=== PATIENT | female | born 1930 | race Caucasian/White ===

== ENCOUNTER 2016-11-02 06:50 | Inpatient (IN) | payer OTHER ==
[2016-11-02] VITALS (16 sets, daily range): BP systolic 108–177; BP diastolic 43–123
[~2016-11-02] VITALS: Ht 154.9 cm; Wt 88.0 kg
--- NOTE | 2016-11-02 06:56 | NUR ---
[facility] TO ER BED 1
--- NOTE | 2016-11-02 06:59 | NUR ---
RECEIVED PT THROUGH ER. PT TRACH SIZE IS PORTEX 8. PT PLACED ON VENT WITH SETTINGS RECEIVED FROM [facility]. SETTINGS AC 12, VT 500, PEEP 5 AND FIO2 40%. PT SUCTIONED OBTAINED MODERATE AMOUNT OF BLOODY SECRETIONS, AIRWAY IS PATENT. TRACH SECURE. BIPAP IS PLUGGED INTO RED OUTLET WITH ALARMS ON AND FUNCTIONING. AMBU BAG IS PRESENT AT BEDSIDE. WILL CONTINUE TO MONITOR.
[2016-11-02] MEDS ORDERED: diphenhydrAMINE 50 MG/ML VIAL IVP ONE (07:10)
[2016-11-02] MEDS ORDERED: ALBUTEROL SULFATE/IPRATROPIU 3 ML SOL IH PRN (07:10)
[2016-11-02] MEDS ORDERED: FAMOTIDINE 20 MG/2 ML VIAL IVP ONE (07:10)
[2016-11-02] MEDS ORDERED: DEXAMETHASONE 10 MG/ML VIAL IVP ONE (07:10)
--- NOTE | 2016-11-02 07:15 | NUR ---
BIBA C/O SWOLLEN TONGUE FOR 2 DAYS NOW , POSSIBLE ALLERGIC REACTION TO VANCOMYCIN, OR FLAGYL. BREATHING TREATMENT WAS GIVEN EN ROUTE, WITH LEFT CELLULITIS, VENTILATOR DEPENDENT AC 12 TV 500 FIO2 40% PEEP +5 SPO2 100%
[2016-11-02] MEDS ORDERED: ARTIFICIAL TEA1 EACH OP (07:29)
[2016-11-02] MEDS ORDERED: BUDESONIDE0.25 MG/2 NEB (07:29)
[2016-11-02] MEDS ORDERED: TYLENOL325 M2 GT (07:29)
[2016-11-02] MEDS ORDERED: BENADRYL25 M3 GT (07:29)
[2016-11-02] MEDS ORDERED: ASPIR 8181 M1 GT (07:29)
[2016-11-02] MEDS ORDERED: CALCIUM 600 MG-1 TAB GT (07:36)
[2016-11-02] MEDS ORDERED: GABAPENTIN250 MG/5 M GT (07:46)
[2016-11-02] MEDS ORDERED: FLUCONAZOLE 50 MG/5 ML GT (07:46)
[2016-11-02] MEDS ORDERED: FERROUS SULF GT (07:46)
[2016-11-02] MEDS ORDERED: FUROSEMIDE20 MG GT (07:46)
[2016-11-02] MEDS ORDERED: COLACE100 MG GT (07:46)
[2016-11-02] MEDS ORDERED: [UNRECOGNIZED DRUG - OTHER] PO (07:46)
[2016-11-02] MEDS ORDERED: FERROUS SULFATE65 MG GT (07:46)
[2016-11-02] MEDS ORDERED: GOOD NEIGHBOR P10 M1 RC (07:46)
[2016-11-02] MEDS ORDERED: NACL 0.9% 2,000 ML IV ONE (07:50)
[2016-11-02] MEDS ORDERED: AZITHROMYCIN 500 MG in DEXTROSE 5% 250 ML IV ONE (08:05)
[2016-11-02] MEDS ORDERED: AZTREONAM 2,000 MG in DEXTROSE 5% 100 ML IV ONE (08:05)
[2016-11-02] MEDS ORDERED: NACL 0.9% 1,000 ML IV ONE (08:05)
[2016-11-02] MEDS ORDERED: LOPRESSOR25 MG GT (08:06)
[2016-11-02] MEDS ORDERED: PROBIOTIC1 EACH GT (08:06)
[2016-11-02] MEDS ORDERED: ATROVENT 00.5 MG/3 M INH ×2 (08:06)
[2016-11-02] MEDS ORDERED: LEVAQUIN750 MG GT (08:06)
[2016-11-02] MEDS ORDERED: ZOLOFT25 MG PO (08:20)
[2016-11-02] MEDS ORDERED: VANCO 1 GR1 GM/250 M IV (08:20)
[2016-11-02] MEDS ORDERED: MYLICON80 MG GT (08:20)
[2016-11-02] MEDS ORDERED: MILK OF MA400 MG/5 M GT (08:20)
[2016-11-02] MEDS ORDERED: SENNA8.6 M1 GT (08:20)
[2016-11-02] MEDS ORDERED: MULTI-VITAMINS1 TAB GT (08:20)
[2016-11-02] MEDS ORDERED: PRAVACHOL20 MG GT (08:20)
[2016-11-02] MEDS ORDERED: NORCO 325 MG-51 TAB GT (08:20)
[2016-11-02] MEDS ORDERED: NEXIUM40 MG GT (08:20)
[2016-11-02] MEDS ORDERED: FLAGYL250 MG GT (08:20)
--- NOTE | 2016-11-02 08:40 | NUR ---
IV ACCESS ESTABLISHED BY ALFONZOA 20G RIGHT AC
[2016-11-02] MEDS ORDERED: AZTREONAM 1,000 MG VIAL ONE (08:44)
--- NOTE | 2016-11-02 08:45 | NUR ---
SPOKE TO SARAH REGARDINGTHE DELAY OF ADM. TO ICU. MORE MEDS/CARE TO BE DONE PRIOR TO ADM.
--- NOTE | 2016-11-02 09:00 | NUR ---
ICU CHARGE NURSE MADE AWARE OF THE DELAY OF ADM.
--- NOTE | 2016-11-02 09:02 | NUR ---
Nettie mohan in [facility] - 11/02/16 at 0903 by EMPERATRIZ 0840 IV ACCESS ESTABLISHED BY JASON ROBERTS 20G
[2016-11-02] MEDS ORDERED: AZITHROMYCIN 500 MG INJ VIAL IV ONE (09:11)
--- NOTE | 2016-11-02 09:26 | NUR ---
AREA AROUND STOMA CLEANED OF SECRETIONS, NO REDNESS. TRACH IS SECURE. WILL CONTINUE TO MONITOR.
[2016-11-02] MEDS ORDERED: BISACODYL 10 MG SUPP RC PRN (10:45)
[2016-11-02] MEDS ORDERED: ACETAMINOPHEN 650 MG/20.3 ML UDC GT SCH (10:45)
[2016-11-02] MEDS ORDERED: HYDROcodone/APAP 5/325 MG 1 TAB TAB GT PRN (10:45)
[2016-11-02] MEDS ORDERED: MAGNESIUM HYDROXIDE 2400 MG/30 ML UDC GT PRN (10:45)
--- NOTE | 2016-11-02 10:47 | NUR ---
REPORT GIVEN TO FALLON TOBAR
[2016-11-02] MEDS: LINEZOLID 600MG PREMIX 300 ML IV SCH ×2 (11:00→21:58)
[2016-11-02] MEDS ORDERED: ACETAMINOPHEN 650 MG/20.3 ML UDC GT PRN (11:02)
--- NOTE | 2016-11-02 11:15 | NUR ---
Patient will be admitted to care of DR WHITESIDE. Admited to ICU. Will go to room ICU3. Belongings list completed. REPORT GIVEN TO FALLON TOBAR.
--- NOTE | 2016-11-02 11:20 | NUR ---
ADMITTED 86 YEAR OLD FEMALE FROM ER VIA GURNEY WITH A DIAGNOSIS OF ANGIO EDEMA, SEPSIS. IV ON RIGHT AC PATENT AND INTACT INFUSING ABX WELL. PT IS AAOX1, NON VERBAL, SWOLLEN TONGUE NOTED, PT IS ABLE TO FOLLOW SIMPLE COMMANDS, PT IS ON TRACH TO VENTILATOR WITH A SETTING OF AC 12, FIO2 40%, VT 500, PEEP 5 WITH THE O2 SAT OF 100%, RHONCHI AUSCULTATED ON LUNGS, VITALS STABLE, SR ON THE MONITOR, ACTIVE BOWEL SOUNDS AUSCULTATED, SANDHU CATH IN PLACE NOTED DRAINING LIGHT ALESHA URINE, PT HAS GENERALIZED WEAKNESS WITH LEFT SIDED HEMIPLEGIA, LEFT ARM OPEN CELLULITIS NOTED. ORIENTED PT IN THE ROOM AND USE OF CALL LIGHT, SAFETY/FALL/ASPIRATION/PRESSURE PRECAUTION ENFORCED, CALL LIGHT WITHIN REACH, WILL CONTINUE TO MONITOR.
--- NOTE | 2016-11-02 11:20 | NUR ---
PATIENT TRANSFERRED FROM ER PLACED IN ICU-3 WITH SAME SETTINGS NOTED
--- NOTE | 2016-11-02 11:25 | NUR ---
BREATH SOUNDS COARSE RHONCHI BILATERAL SPUTUM CULTURE OBTAINED PRE AND POST HYPEROXYGENATION FOR SUCTIONING DEEP TRACHEAL SUCTION FOR LARGE THICK BLOOD TINGE SECRETIONS
--- NOTE | 2016-11-02 11:27 | NUR ---
PT MANUALLY VENTILATED FROM ER TO ICU WITHOUT INCIDENT. PT PLACED ON VENT WITH ORIGINAL DOCUMENTED SETTINGS. PT NOT SOB AND NOT IN RESPIRATORY DISTRESS AT THIS TIME. WILL CONTINUE TO MONITOR.
--- NOTE | 2016-11-02 11:30 | NUR ---
WOUND CARE NURSE AT BEDSIDE EVALUATING THE PT. WOUND CULTURES COLLECTED, PICTURES TAKEN.
--- NOTE | 2016-11-02 11:45 | NUR ---
WOUND CARE EVALUATION NOTES: REASON FOR EVALUATION: LEFT ARM CELLULITIS COMPLETE SKIN ASSESSMENT DONE ON THIS 86 Y/O FEMALE PATIENT [facility], WITH INITIAL DIAGNOSIS OF ANGIOEDEMA AND SEPSIS. PAST MEDICAL HISTORY INCLUDE CHRONIC RESPIRATORY FAILURE AND S/P CVA WITH LEFT SIDE HEMIPLEGIA. ALL ABOVE INFORMATION WAS OBTAINED FROM THE ADMISSION H&P. LABS ARE WBC 20.7, H/H 10.3/32.5, GLUCOSE 147, ALBUMIN 2.5, PT/INR 11.6/1.2 AND PTT 25.4. CURRENT MEDS INCLUDE ENOXAPARIN, FLUCONAZOLE, ASPIRIN, HYDROCORTISONE, METRONIDAZOLE, NORCO AND LINEZOLID. PATIENT IS AWAKE, NON VERBAL DUE TO TRACH TO VENT. EYES ABLE TO TRACK MOVEMENTS AND ABLE TO FOLLOW SIMPLE COMMANDS. SKIN WARM TO TOUCH WNL, TOENAILS ARE SLIGHTLY THICKENED, NO EDEMA, FINE HAIR GROWTH AND +2 BILATERAL PEDAL PULSES. FC 14 FR PATENT AND INTACT TO LIGHT ALESHA COLORED URINE IN MODERATE AMOUNT. RIGHT AC AND RIGHT FOREARM PERIPHERAL IV NOTED. NEEDS MAX ASSISTANCE IN TURNING. INITIAL MORGAN OF CARE AND PRESSURE PREVENTIVE MEASURES DISCUSSED, ABLE TO DEMONSTRATE UNDERSTANDING BY BLINKING HER EYES AND NODDING HER HEAD. INTEGUMENTARY: LEFT BUTTOCK - ST II - 100% PALE RED. PERIAREA - RED AND MOIST LEFT LATERAL WRIST - CELLULITIS - X 2 OPEN SITES LEFT ELBOW - CELLULITIS - DUSKY RED LEFT 2ND TOE - ABRASION - 100% BROWN SCAB RIGHT LATERAL HALLUX - INGROWN TOENAIL - WITH BLACK SCAB NOTED. PW PEELING OFF RECOMMENDATIONS: -CLEANSE SACRALCOCCYX, BUTTOCKS AND PERIAREA WITH MILD SOAP AND WATER, PAT DRY, APPLY Z GUARD BIDWC AND PRN WITH SOILING. LEAVE OPEN TO AIR -CLEANSE LEFT ELBOW AND LEFT WRIST WITH WOUND CLEANSER, PAT DRY, APPLY THERAHONEY GEL, COVER WITH ADAPTIC, ABD PAD AND WRAP WITH GERARDO Q DAY AND PRN WITH SOILING/DISPLACEMENT -PAINT LEFT 2ND TOE AND RIGHT GREAT TOE WITH BETADINE BIDWC AND LEAVE OPEN TO AIR -TURN AND REPOSITION PATIENT Q 2H TO LEFT AND RIGHT SIDE ONLY TO OFFLOAD SACRALCOCCYX -ASSESS AND MONITOR SKIN CONDITION DURING POSITION CHANGE, PLEASE PAY PARTICULAR ATTENTION TO SACRALCOCCYX, ELBOWS AND HEELS -OFFLOAD BILATERAL HEELS BY PLACING PILLOWS UNDER CALVES AT ALL TIMES, UNLESS OTHERWISE CONTRAINDICATED -PRESSURE REDISTRIBUTION SURFACE THERAPY. -SURGICAL CONSULT OF LEFT ELBOW AND LEFT WRIST IF OK WITH PMD. -KEEP SKIN CLEAN AND DRY AT ALL TIMES. RECOMMENDATIONS DISCUSSED WITH PRIMARY RN WILL FOLLOW UP PATIENT Q7 DAYS AND PRN. PLEASE CONTACT [facility] FOR ANY CONCERNS, QUESTIONS AND CHANGES IN SKIN CONDITION.
[2016-11-02] MEDS: ALBUTEROL SULFATE/IPRATROPIU 3 ML SOL IH PRN (11:47)
--- NOTE | 2016-11-02 11:47 | NUR ---
RECIEVED ON [facility] R860 VENTILATOR PLUGGED INTO RED OUTLET TOLERATING WELL WITHOUT INCIDENT TO A PORTEX #8 DCT AIRWAY SECURED WITH A TRACH TIE CUFF PRESSURE CHECKED FOR MOV AMBU BAG NOTED ATHOB LOC AWAKE SLIGHTLY LABORED BREATH SOUNDS DIFFUSED RHONCHI BILATERAL GOOD CHEST RISE PREAND POST HYPEROXYGENATION FOR SUCTIONING DEEP TRACHEAL SUCTION FOR MODERATE BLOOD CLOT SECRETIONS AIRWAY PATENT
--- NOTE | 2016-11-02 11:53 | NUR ---
SPOKE TO DR. JOSÉ, UPDATED ON PT CONDITIONS, NO NEW ORDERS RECEIVED.
[2016-11-02] MEDS ORDERED: Z-GUARD PASTE TP PRN (12:10)
[2016-11-02] MEDS ORDERED: THERAHONEY GEL 42.5 GM TP PRN (12:10)
--- NOTE | 2016-11-02 12:47 | NUR ---
DR. JOSÉ IS IN TO SEE THE PT, UPDATED ON PT'S CONDITION, WILL FOLLOW UP ON ORDERS.
[2016-11-02] MEDS: HYDROCORTISONE NA SUCC 100 MG/2 ML VIAL IV SCH ×2 (12:58→21:57)
[2016-11-02] MEDS: SIMETHICONE 80 MG TAB.CHEW GT SCH ×2 (12:58→17:35)
[2016-11-02] MEDS: diphenhydrAMINE 12.5 MG/5 ML UDC GT SCH ×3 (12:58→21:57)
[2016-11-02] MEDS ORDERED: metroNIDAZOLE 250 MG TAB GT SCH (13:00)
--- NOTE | 2016-11-02 13:00 | NUR ---
WOUND CARE NOTES: RECOMMENDATIONS FOR SURGICAL CONSULT AND SOFT TISSUE U/S OF LEFT ARM ARE NOT OK WITH DR. JOSÉ. PER PRIMARY RN, DR. JOSÉ SAID THAT HE HAVE KNOWN THE PATIENT EVEN AT [facility] AND ULTRASOUND WAS DONE AND THERE WAS NO ABSCESS NOTED. PMD ALSO STATED THAT THE WOUND IS GETTING BETTER. WILL CONTINUE LOCAL WOUND CARE.
[2016-11-02] MEDS: Z-GUARD PASTE TP SCH (13:34)
[2016-11-02] MEDS: THERAHONEY GEL 42.5 GM TP SCH (13:34)
[2016-11-02] MEDS: GAUZE TP SCH (13:34)
--- NOTE | 2016-11-02 14:50 | NUR ---
ASLEEP RESTING COMFORTABLY NO EVIDENCE OF RESPIRATORY DISTRESS NOTED BREATHS SOUNDS INSP RHONCHI AND WHEEZE BILATERAL GOOD CHEST RISE HYPEROXYGENATION PRE AND POST SUCTIONING DEEP TRACHEAL SUCTION FOR MODERATE THICK YELLOW WITH BLOOD TINGE SECRETIONS AIRWAY PATENT
--- NOTE | 2016-11-02 15:00 | NUR ---
TUBE FEEDING STARTED AT 40 ML/HR, WITH H2O FLUSH OF 100ML Q8H. WILL MONITOR RESIDUAL AFTER 1 HOUR.
[2016-11-02] MEDS: IPRATROPIUM 0.02% 0.5 MG/2.5 ML NEBU INH SCH ×3 (15:58→23:06)
--- NOTE | 2016-11-02 15:59 | NUR ---
ASLEEP EASILY AWAKENS NO APPARENT RESPIRATORY DISTRESS NOTED BREATH SOUNDS CLEAR BILATERAL GOOD CHEST RISE
--- NOTE | 2016-11-02 16:00 | NUR ---
REPOSITIONED PT, ORAL CARE GIVEN, KEPT CLEAN AND DRY, PT TOLERATED WELL, TUBE FEEDING CHECKED, RESIDUAL OF 45ML NOTED, CONTINUE WITH FEEDING. WILL CONTINUE TO MONITOR.
--- NOTE | 2016-11-02 17:51 | NUR ---
ASLEEP RESTING COMFORTABLY NO SOB NOTED BREATH SOUNDS CLEAR BILATERAL GOOD CHEST RISE
--- NOTE | 2016-11-02 18:22 | NUR ---
REPOSITIONED PT, PT TOLERATED WELL, KEPT CLEAN AND DRY, NO S/S OF RESPIRATORY DISTRESS OR DISCOMFORT NOTED, WILL CONTINUE TO MONITOR.
--- NOTE | 2016-11-02 19:05 | NUR ---
ENDORSED PT TO FALLON GIPSON FOR CONTINUITY OF CARE. PT IS STABLE AT THIS TIME.
--- NOTE | 2016-11-02 19:12 | NUR ---
RCV'D PT ON MECHANICAL VENT WITH PORTEX 8 TRACH. TRACH IS SECURE AND IN PLACE. VENT SETTINGS ARE AC 12, 500, 5, 40%. VENT IS CONNECTED TO RED OUTLET. ALARMS ARE AUDIBLE. AMBU BAG AT BEDSIDE. HHN TX GIVEN. SXN'D SMALL AMT OF THICK RED SECRETIONS. NO DISTRESS OR SOB NOTED. WILL CONTINUE TO MONITOR.
--- NOTE | 2016-11-02 19:32 | NUR ---
RECEIVED REPORT FROM SAUL LEHMAN. PATIENT IS AAOX1 TO NAME, NONVERBAL, AND BEDBOUND. PATIENT IS TRACH TO VENT WITH SETTINGS OF FIO2 40%, TV 500, A/C 12, AND PEEP OF 5. NO SIGNS OF RESPIRATORY DISTRESS NOTED. RHONCHI HEARD UPON AUSCULTATION WITH BOWEL SOUNDS PRESENT. THERE IS A #20 IN THE RIGHT AC RECEIVING NS AT 10 ML/HR TKO. THERE IS A G-TUBE PRESENT. PATIENT RECEIVING G-TUBE FEEDING OF NUTREN PULMONARY AT 40 ML/HR. PATIENT TOLERATING TUBE FEEDING FAIRLY WITH 50 ML RESIDUAL NOTED. THERE IS A SANDHU CATHETER PRESENT WITH SMALL AMOUNT OF LIGHT ALESHA COLORED URINE NOTED. VAP ORAL CARE RENDERED. HOB AT 30 DEGREES WITH BED IN LOW POSITION. WILL CONTINUE TO MONITOR PATIENT. Addendum: 11/02/16 at 2027 by Lisseth Ashley RN SWOLLEN TONGUE NOTED. THERE IS A WOUND TO THE LOWER LEFT ARM COVERED WITH ABDOMINAL PAD AND SECURED WITH GERARDO WRAP. THERE IS A STAGE 2 PRESSURE ULCER TO THE SACRAL AREA COVERED WITH ADAPTIC DRESSING WITH THERAHONEY.
[2016-11-02] MEDS: BUDESONIDE 0.25 MG/2 ML NEBU INH SCH (20:18)
[2016-11-02] MEDS ORDERED: GABAPENTIN 250 MG GT SCH (21:00)
--- NOTE | 2016-11-02 21:47 | NUR ---
DR. GLASGOW PRESENT ON UNIT TO SEE PATIENT. PROVIDED MD WITH STATUS UPDATE.
[2016-11-02] MEDS: LACTOBACILLUS RHAMNOSUS GG 1 EACH CAP GT SCH (21:57)
[2016-11-02] MEDS: SENNA 8.6 MG TAB GT SCH (21:57)
[2016-11-02] MEDS: SERTRALINE 50 MG TAB PO SCH (21:58)
[2016-11-02] MEDS: SIMVASTATIN 10 MG TAB GT SCH (21:58)
[2016-11-02] MEDS: METOPROLOL 25 MG TAB GT SCH (21:58)
[2016-11-02] MEDS: FAMOTIDINE 20 MG/2 ML VIAL IV SCH (21:58)
--- NOTE | 2016-11-02 22:19 | NUR ---
TOLERATED SCHEDULED MEDS WELL. NO SIGNS OF DISCOMFORT OR SOB NOTED. CONTINUE TO MONITOR.
--- NOTE | 2016-11-02 22:30 | NUR ---
PATIENT REPOSITIONED. NO S/S OF SOB OR DISTRESS NOTED. HOB AT 30 DEGREES WITH BED IN LOW POSITION. CONTINUE TO MONITOR PATIENT.
[2016-11-03] VITALS (24 sets, daily range): BP systolic 120–160; BP diastolic 29–115
[2016-11-03] MEDS: Z-GUARD PASTE TP SCH ×2 (00:29→13:17)
[2016-11-03] MEDS: SIMETHICONE 80 MG TAB.CHEW GT SCH ×4 (00:29→17:48)
--- NOTE | 2016-11-03 00:37 | NUR ---
VAP ORAL CARE RENDERED. NO S/S OF SOB NOTED. CONTINUE TO MONITOR.
--- NOTE | 2016-11-03 01:17 | NUR ---
PATIENT REPOSITIONED FOR COMFORT. NO S/S OF SOB NOTED. HOB AT 30 DEGREES WITH BED IN LOW POSITION. CONTINUE TO MONITOR PATIENT.
[2016-11-03] MEDS ORDERED: CLINDAMYCIN 600 MG/4 ML VIAL ONE (02:44)
[2016-11-03] MEDS: IPRATROPIUM 0.02% 0.5 MG/2.5 ML NEBU INH SCH ×6 (03:09→23:00)
--- NOTE | 2016-11-03 04:27 | NUR ---
PATIENT HAD MODERATE BM. MORNING AND PERINEAL CARE RENDERED. BED BATH GIVEN. CHANGED BED LINENS AND GOWN. REPOSITIONED FOR COMFORT. VAP ORAL CARE RENDERED. NO SIGNS OF SOB NOTED. HOB AT 30 DEGREES WITH BED IN LOW POSITION. CONTINUE TO MONITOR PATIENT.
--- NOTE | 2016-11-03 04:36 | NUR ---
PIN WORKER AT BEDSIDE FOR SCHEDULED LAB DRAWS.
[2016-11-03] MEDS: CLINDAMYCIN 600 MG in DEXTROSE 5% 50 ML IV SCH ×3 (04:43→21:12)
[2016-11-03] MEDS: AZTREONAM 1,000 MG in DEXTROSE 5% 50 ML IV SCH ×3 (04:44→21:15)
[2016-11-03] MEDS: HYDROCORTISONE NA SUCC 100 MG/2 ML VIAL IV SCH ×3 (04:44→20:54)
--- NOTE | 2016-11-03 04:49 | NUR ---
TOLERATED DUE MEDICATIONS. UNABLE TO ADMINISTER AZACTAM ABX R/T MEDICATION NOT AVAILABLE. CHARGE NURSE DOUG LEHMAN AND HELENE GUZMÁN RN ARE AWARE. WILL CONTINUE TO MONITOR PATIENT.
--- NOTE | 2016-11-03 05:26 | NUR ---
TRACH CARE DONE. TRACH IS IN PLACE AND SECURED. NO SOB OR DISTRESS NOTED. WILL CONTINUE TO MONITOR.
--- NOTE | 2016-11-03 06:30 | NUR ---
RECEIVED PT ON CARESCAPE ON A\C 12 VT 500 PEEP 5 FIO2 40 ALARMS ARE ON AND FUNCTONAL BMV HOB PTS TRACH PORTEX 8 IS SECURE PT IN HF AWAKE BS CL\DIM I\L LAVAGE AND SX SCANT YELLOW VENT PLUGGED INTO RED OUTLET HHN GIVEN I\L WITH 0.5 MG ATROVENT FOLLOWED BY HHN GIVEN WITH 0.5 MG PULMICORT
--- NOTE | 2016-11-03 06:40 | NUR ---
RESPIRATORY THERAPIST AT BEDSIDE TO SUCTION PATIENT.
[2016-11-03] MEDS: BUDESONIDE 0.25 MG/2 ML NEBU INH SCH ×2 (06:45→19:30)
--- NOTE | 2016-11-03 07:08 | NUR ---
PATIENT IN STABLE CONDITION. ENDORSED CONTINUITY OF CARE TO JESSICA LEHMAN.
--- NOTE | 2016-11-03 07:40 | NUR ---
RECEIVED REPORT FROM LEONELA LEHMAN. BEDSIDE MONITOR SHOWS SR .PT NONVERBAL, SWOLLEN TONGUE NOTED, OPENS EYES SPONTANEOUSLY BUT UNABLE TO MAKE NEEDS KNOWN. TRACH TO VENT WITH SETTINGS OF FIO2 40%, TV 500, A/C 12, AND PEEP OF 5. NO SIGNS OF RESPIRATORY DISTRESS NOTED. RHONCHI HEARD UPON AUSCULTATION.ABDOMEN SOFT WITH ACTIVE BOWEL SOUNDS . PATIENT RECEIVING G-TUBE FEEDING OF NUTREN PULMONARY AT 40 ML/HR. NO RESIDUAL AT THIS TIME. SANDHU CATHETER IN PLACE WITH SMALL AMOUNT OF YELLOW URINE NOTED. IV TO RIGHT AC #20 RECEIVING NS AT 10 ML/HR TKO. SKIN NON INTACT ( SEE WOUND ASSESSMENT). NO FEVER. HOB AT 30 DEGREES WITH BED IN LOW POSITION. WILL CONTINUE TO MONITOR
--- NOTE | 2016-11-03 07:48 | NUR ---
PATIENT HAS BEEN SCREENED AND CATEGORIZED HIGH NUTRITION RISK. PATIENT WILL BE SEEN WITHIN 1-2 DAYS OF ADMISSION. 11/03/16-11/04/[address]
--- NOTE | 2016-11-03 08:49 | NUR ---
VENT CHECK BS RHONCI I\L LAVAGE AND SX LG YELLOW
[2016-11-03] MEDS: diphenhydrAMINE 12.5 MG/5 ML UDC GT SCH ×4 (08:53→20:54)
[2016-11-03] MEDS: MULTIVITAMIN 5 ML ORASYR GT SCH (08:53)
[2016-11-03] MEDS: DOCUSATE 100 MG/10 ML UDC GT SCH (08:53)
[2016-11-03] MEDS: ASPIRIN 81 MG TAB.CHEW GT SCH (08:53)
[2016-11-03] MEDS: FAMOTIDINE 20 MG/2 ML VIAL IV SCH ×2 (08:54→20:54)
[2016-11-03] MEDS: FUROSEMIDE 20 MG TAB GT SCH (08:54)
[2016-11-03] MEDS: METOPROLOL 25 MG TAB GT SCH ×2 (08:55→20:55)
[2016-11-03] MEDS: LINEZOLID 600MG PREMIX 300 ML IV SCH ×2 (08:56→20:53)
[2016-11-03] MEDS ORDERED: FLUCONAZOLE 100 MG TAB PO SCH (09:00)
[2016-11-03] MEDS ORDERED: FLUCONAZOLE 200 MG GT SCH (09:00)
[2016-11-03] MEDS ORDERED: LACTOBACILLUS RHAMNOSUS GG 1 EACH CAP PO SCH (09:00)
[2016-11-03] MEDS: ENOXAPARIN 30 MG/0.3 ML SYR SUBQ SCH (09:00)
[2016-11-03] MEDS: LACTOBACILLUS RHAMNOSUS GG 1 EACH CAP GT SCH ×2 (09:12→21:00)
--- NOTE | 2016-11-03 10:00 | NUR ---
PT OPENS EYES SPONTANEOUSLY, NON VERBAL, NO S/S OF RESPIRATORY DISTRESS NOTED.
--- NOTE | 2016-11-03 13:00 | NUR ---
IN TO SEE PT.
[2016-11-03] MEDS: GAUZE TP SCH (13:17)
[2016-11-03] MEDS: THERAHONEY GEL 42.5 GM TP SCH (13:17)
--- NOTE | 2016-11-03 13:42 | NUR ---
VENT CHECK BS DIMINISHED AIRWAY IS PATENT
--- NOTE | 2016-11-03 14:08 | NUR ---
11/03/16 RD INITIAL ASSESSMENT COMPLETED PLEASE REFER TO NUTRITION ASSESSMENT UNDER CARE ACTIVITY FOR ESTIMATED NUTRITIONAL NEEDS. RD RECOMMENDATIONS: RECOMMEND DECREASE TUBE FEED NUTREN PULMONARY TO 30 ML/HR X 24 HR AND ADD PROSOURCE BID VIA GTUBE --THIS WILL PROVIDE 1200 KCAL AND 79 GM PROTEIN AND WILL MEET 100% OF ESTIMATED KCAL AND PROTEIN NEEDS. 2. RD WILL F/U 2-3 DAYS; HIGH RISK. CHERYLE CRUZ RD
--- NOTE | 2016-11-03 14:47 | NUR ---
[phone] PHONE JOSE ANTONIO [phone]
--- NOTE | 2016-11-03 15:39 | NUR ---
VENT CHECK BS INSP WHEEZING HHN GIVEN I\L WITH 0.5 MG ATROVENT I\L SX LG YELLOW Addendum: 11/03/16 at 1606 by Velia Leyva RT DECREASE FIO2 TO 30
--- NOTE | 2016-11-03 16:00 | NUR ---
TURNED AND REPOSITIONED PT. PT HAD SMALL AMOUNT OF GREENISH SOFT STOOL , CLEANED PT, ORAL CARE GIVEN. WILL CONTINUE TO MONITOR.
--- NOTE | 2016-11-03 17:03 | NUR ---
REPORT GIVEN TO LEONELA LEHMAN. NO S/S OF RESPIRATORY DISTRESS NOTED AT THIS TIME. Addendum: 11/03/16 at 6 by Eleonora Valderrama RN REPORT GIVEN AT 1902
--- NOTE | 2016-11-03 17:26 | NUR ---
VENT CHECK BS DIMINISHED PT REFUSES SX
--- NOTE | 2016-11-03 18:12 | NUR ---
PT RESTING IN BED. NO SOB AT THIS TIME. VSS.
--- NOTE | 2016-11-03 19:35 | NUR ---
RECEIVED REPORT FROM JESSICA LEHMAN. PATIENT IS AAOX1 TO NAME, NONVERBAL, AND BEDBOUND. PATIENT TONGUE IS SWOLLEN. PATIENT IS TRACH TO VENT WITH SETTINGS OF FIO2 40%, TV 500, A/C 12, AND PEEP OF 5. NO SIGNS OF RESPIRATORY DISTRESS NOTED. RHONCHI HEARD UPON AUSCULTATION WITH BOWEL SOUNDS PRESENT. THERE IS A #20 IN THE RIGHT AC RECEIVING NS AT 10 ML/HR TKO. THERE IS A G-TUBE PRESENT. PATIENT RECEIVING G-TUBE FEEDING OF NUTREN PULMONARY AT 30 ML/HR. PATIENT TOLERATING TUBE FEEDING WELL WITH 10 ML RESIDUAL NOTED. THERE IS A SANDHU CATHETER PRESENT WITH SMALL AMOUNT OF LIGHT ALESHA COLORED URINE NOTED. THERE IS A WOUND TO THE LOWER LEFT ARM COVERED WITH ABDOMINAL DRESSING AND SECURED WITH GERARDO WRAP. THERE IS A STAGE 2 SACRAL PRESSURE WOUND PROTECTED WITH ADAPTIC DRESSING WITH THERAHONEY. BOTH DRESSINGS ARE DRY AND INTACT. VAP ORAL CARE RENDERED. PATIENT REPOSITIONED FOR COMFORT. HOB AT 30 DEGREES WITH BED IN LOW POSITION. WILL CONTINUE TO MONITOR PATIENT. Addendum: 11/03/16 at 1948 by Lisseth Ashley RN FIO2 IS 30% AND NUTREN PULMONARY IS RUNNING AT 40ML/HR.
[2016-11-03] MEDS: SERTRALINE 50 MG TAB PO SCH (20:54)
[2016-11-03] MEDS: SENNA 8.6 MG TAB GT SCH (20:54)
[2016-11-03] MEDS: SIMVASTATIN 10 MG TAB GT SCH (20:55)
--- NOTE | 2016-11-03 21:05 | NUR ---
DR. GLASGOW AT BEDSIDE. PROVIDED MD WITH PATIENT'S STATUS. NO NEW ORDERS GIVEN AT THIS TIME. CONTINUE TO MONITOR PATIENT.
--- NOTE | 2016-11-03 21:11 | NUR ---
PATIENT TOLERATED DUE MEDICATIONS. NO SIGNS OF SOB OR ACUTE DISTRESS NOTED. HOB AT 30 DEGREES WITH BED IN LOW POSITION. CONTINUE TO MONITOR PATIENT.
--- NOTE | 2016-11-03 22:01 | NUR ---
UNABLE TO ADMINISTER 2100 CULTURELLE MEDICATION. INFORMED CHARGE NURSE DOUG RN AND WAREHOUSE ADMINISTRATOR LARRY RN THAT MEDICATION APPEARS ON PATIENT'S EMAR, BUT DOES NOT SHOW UP ON PYXIS. CHARGE NURSE DOUG RN AND HS LARRY LEHMAN UNABLE TO ACCESS MEDICATION FROM PYXIS IN UNIT. WILL CONTINUE TO MONITOR PATIENT.
[2016-11-03] MEDS: ALBUTEROL SULFATE/IPRATROPIU 3 ML SOL IH PRN (23:16)
--- NOTE | 2016-11-03 23:18 | NUR ---
DOUBLE ORDER ATROVENT AND DUONEB Q4 , HOLD ATROVENT AND GAVE PT DUONEB, HR NORMAL OF 78
[2016-11-04] VITALS (16 sets, daily range): BP systolic 131–180; BP diastolic 62–86
--- NOTE | 2016-11-04 00:37 | NUR ---
MORNING CARE RENDERED. BED BATH PROVIDED. CHANGED GOWN AND LINENS. REPOSITIONED PATIENT FOR COMFORT. VAP ORAL CARE RENDERED. NO SIGNS OF SOB NOTED. HOB AT 30 DEGREES WITH BED IN LOW POSITION. CONTINUE TO MONITOR PATIENT.
[2016-11-04] MEDS: SIMETHICONE 80 MG TAB.CHEW GT SCH ×4 (00:39→17:14)
[2016-11-04] MEDS: Z-GUARD PASTE TP SCH ×2 (01:19→12:09)
--- NOTE | 2016-11-04 03:35 | NUR ---
PATIENT REPOSITIONED FOR COMFORT. VAP ORAL CARE RENDERED. NO SIGNS OF RESPIRATORY DISTRESS NOTED. HOB AT 30 DEGREES WITH BED IN LOW POSITION. CONTINUE TO MONITOR.
[2016-11-04] MEDS: ALBUTEROL SULFATE/IPRATROPIU 3 ML SOL IH PRN (03:57)
[2016-11-04] MEDS: CLINDAMYCIN 600 MG in DEXTROSE 5% 50 ML IV SCH ×2 (04:13→13:15)
[2016-11-04] MEDS: HYDROCORTISONE NA SUCC 100 MG/2 ML VIAL IV SCH ×2 (05:02→12:08)
[2016-11-04] MEDS: AZTREONAM 1,000 MG in DEXTROSE 5% 50 ML IV SCH ×2 (05:02→12:08)
[2016-11-04] MEDS: IPRATROPIUM 0.02% 0.5 MG/2.5 ML NEBU INH SCH ×3 (06:29→15:33)
--- NOTE | 2016-11-04 06:30 | NUR ---
RECEIVED PT ON CARESCAPE ON A\C 12 VT500 PEEP5 FIO2 30 ALARMS ARE ON AND FUNCTIONAL PTS TRACH PORTEX 8 IS SECURE PT IN HF QUIET BS RHONCI I\L LAVAGE AND SX MOD YELLOW HHN GIVEN I\L WITH 0.5 MG ATROVENT FOLLOWED BY HHN I\L WITH 0.5 MG PULMICORT
--- NOTE | 2016-11-04 06:31 | NUR ---
RESPIRATORY THERAPIST AT BEDSIDE.
[2016-11-04] MEDS: BUDESONIDE 0.25 MG/2 ML NEBU INH SCH (06:42)
--- NOTE | 2016-11-04 07:15 | NUR ---
PATIENT IN STABLE CONDITION. ENDORSED CONTINUITY OF CARE TO LAZARO LEHMAN.
--- NOTE | 2016-11-04 07:18 | NUR ---
RECEIVED REPORT FROM FALLON GIPSON. NO SIGNS OF ACUTE DISTRESS AT THIS TIME. FLACC 0. PT IS NONVERBAL. PT IS TRACH TO VENT. FIO2: 30%, TV: 500, AC: 12, PEEP: 5. RIGHT AC #20 PATENT AND INTACT. WOUND NOTED TO LEFT BUTTOCK, CELLULITIS NOTED TO LEFT UPPER EXTREMITY. G TUBE IN PLACE TO TUBE FEEDING. SANDHU CATHETER IN PLACE DRAINING TO GRAVITY DRAINAGE BAG. PT IS ON CONTACT ISOLATION WITH SIGNS POSTED OUTSIDE OF PT'S ROOM. PT IS CURRENTLY SINUS RHYTHM ON THE MONITOR. SAFETY PRECAUTIONS IN PLACE WITH BED IN LOWEST POSITION AND SIDE RAILS UP. CALL LIGHT WITHIN REACH. WILL CONTINUE TO MONITOR. Addendum: 11/04/16 at 0836 by Kathia Witt RN SWOLLEN TONGUE NOTED.
--- NOTE | 2016-11-04 07:53 | NUR ---
RECEIVED CALL FROM PT'S . UPDATED HIM ON PT'S PLAN OF CARE.
[2016-11-04] MEDS: LINEZOLID 600MG PREMIX 300 ML IV SCH (08:26)
[2016-11-04] MEDS: MULTIVITAMIN 5 ML ORASYR GT SCH (08:27)
[2016-11-04] MEDS: ASPIRIN 81 MG TAB.CHEW GT SCH (08:27)
[2016-11-04] MEDS: DOCUSATE 100 MG/10 ML UDC GT SCH (08:27)
[2016-11-04] MEDS: diphenhydrAMINE 12.5 MG/5 ML UDC GT SCH ×3 (08:27→17:14)
[2016-11-04] MEDS: FAMOTIDINE 20 MG/2 ML VIAL IV SCH (08:27)
[2016-11-04] MEDS: METOPROLOL 25 MG TAB GT SCH (08:28)
[2016-11-04] MEDS: FUROSEMIDE 20 MG TAB GT SCH (08:28)
[2016-11-04] MEDS: ENOXAPARIN 30 MG/0.3 ML SYR SUBQ SCH (08:33)
--- NOTE | 2016-11-04 08:43 | NUR ---
CHECKED TUBE FEEDING RESIDUAL: NONE NOTED. CHECKED BP: 172/73, POTASSIUM: 4.2. ADMINISTERED MEDICATION ORDERED. PT TOLERATED WELL.
--- NOTE | 2016-11-04 08:52 | NUR ---
VENT CHECK BS DIMINISHED PT SLEEPING
--- NOTE | 2016-11-04 08:55 | NUR ---
UNABLE TO ADMINISTER CULTURELLE AT THIS TIME IT IS NOT LOADED IN THE PYXIS. NOTIFIED PHARMACY.
[2016-11-04] MEDS: LACTOBACILLUS RHAMNOSUS GG 1 EACH CAP GT SCH ×2 (08:56→10:25)
--- NOTE | 2016-11-04 10:15 | NUR ---
PT'S PRESENT AT BEDSIDE.
--- NOTE | 2016-11-04 10:59 | NUR ---
VENT CHECK BS COARSE I\L LAVAGE AND SX MOD YELLOW HHN GIVEN I\L WITH 3MG DUONEB VISITOR BEDSIDE
--- NOTE | 2016-11-04 11:53 | NUR ---
DR. JOSÉ IN TO SEE PT. WILL FOLLOW UP ON ORDERS.
[2016-11-04] MEDS: THERAHONEY GEL 42.5 GM TP SCH (12:09)
[2016-11-04] MEDS: GAUZE TP SCH (12:09)
--- NOTE | 2016-11-04 12:35 | NUR ---
CHECKED TUBE FEEDING RESIDUAL: NONE NOTED. ADMINISTERED MEDICATION ORDERED. PT TOLERATED WELL.
--- NOTE | 2016-11-04 13:18 | NUR ---
PT TOLERATED MEDS WELL
--- NOTE | 2016-11-04 13:26 | NUR ---
SS NOTE: PER EMILEE FROM [facility] ([phone]), PT CAN GO TO ROOM 302 BED 1 ANYTIME. ESPERANZA PINTO.
[2016-11-04] MEDS ORDERED: CLEOCIN HCL300 MG GT ×4 (13:33→15:00)
[2016-11-04] MEDS ORDERED: ZYVOX 600600 MG/300 GT (13:34)
[2016-11-04] MEDS ORDERED: ZYVOX600 MG GT (14:37)
--- NOTE | 2016-11-04 14:54 | NUR ---
NOTIFIED PT'S SON OF PT' TO BE TRANSFERRED TO [facility] RM 302, BED 1. CALLED AND GAVE REPORT TO [facility]. ALL QUESTIONS ANSWERED. AWAITING SET UP OF TRANSPORTATION THIS TIME.
--- NOTE | 2016-11-04 15:06 | NUR ---
CM NOTE CONCURRENT REVIEW FAXED TO [facility] / FAX# [phone], ATTN: JOSE ANTONIO #[phone]
--- NOTE | 2016-11-04 15:33 | NUR ---
VENT CHECK BS DIMINISHED I\L LAVAGE AND SX SM YELLOW HHN GIVEN I\L WITH O.5 MG ATROVENT
[2016-11-04] MEDS ORDERED: PROBIOTIC SCREEN 1 EA MISC MC PRN (16:45)
--- NOTE | 2016-11-04 17:07 | NUR ---
VENT CHECK BS DIMINISHED I\L LAVAGE AND SX MOD YELLOW
--- NOTE | 2016-11-04 17:21 | NUR ---
CHECKED TUBE FEEDING RESIDUAL: NONE NOTED. ADMINISTERED MEDICATION ORDERED. PT TOLERATED WELL.
--- NOTE | 2016-11-04 17:49 | NUR ---
TRANSPORT HAS ARRIVED FOR PT PICKUP. ALL QUESTIONS ANSWERED. PT LEFT UNIT IN STABLE CONDITION.
== END 2016-11-04 18:17 | DRG 871 ==
LOC: MED 06:50 → MIC 09:14
PROVIDERS: ADMIT Internal Medicine Pulmonary Disease; ATTEND Internal Medicine Pulmonary Disease
PROC: 5A1945Z Respiratory Ventilation, 24-96 Consecutive Hours (ICD-10-PCS; principal; 2016-11-02)
DX: A41.9 Sepsis, unspecified organism (principal); J18.9 Pneumonia, unspecified organism; L03.114 Cellulitis of left upper limb; J96.10 Chronic respiratory failure, unspecified whether with hypoxia or hypercapnia; Z99.11 Dependence on respirator [ventilator] status; I69.354 Hemiplegia and hemiparesis following cerebral infarction affecting left non-dominant side; T78.3XXA Angioneurotic edema, initial encounter; I89.0 Lymphedema, not elsewhere classified; Z51.5 Encounter for palliative care; E78.5 Hyperlipidemia, unspecified; I10 Essential (primary) hypertension; Y95 Nosocomial condition; F32.9 Major depressive disorder, single episode, unspecified; B95.62 Methicillin resistant Staphylococcus aureus infection as the cause of diseases classified elsewhere; E66.01 Morbid (severe) obesity due to excess calories; J44.9 Chronic obstructive pulmonary disease, unspecified; Q38.2 Macroglossia; Q38.3 Other congenital malformations of tongue; Z74.01 Bed confinement status; Z93.1 Gastrostomy status; Z93.0 Tracheostomy status; Z88.0 Allergy status to penicillin; Z79.2 Long term (current) use of antibiotics; Z79.82 Long term (current) use of aspirin; Z79.899 Other long term (current) drug therapy; Z68.36 Body mass index [BMI] 36.0-36.9, adult